=== PATIENT | female | born 1945 | race Caucasian/White ===

== ENCOUNTER 2016-09-15 05:22 | Observation (INO) | payer OTHER ==
[2016-09-06 09:37] VITALS: BMI 32.0
--- NOTE | 2016-09-06 10:05 | PAT Medication Instructions ---
Service Date September 06, 2016. Current Home Medication List Amlodipine (Norvasc), 5 MG PO QAM Fish Oil ([place]-3), 1 CAP PO QAM Homeopathic Products (Leg Cramp Relief), 1 TAB PO PRN Multiple Vitamins W/ Minerals (Multivitamin Adults), 1 TAB PO QAM Omeprazole (Prilosec), 20 MG PO QAM Oxycodone/Acetaminophen 5MG/325MG (Percocet 5MG/325MG), 1 TABLET PO Q4-6H [Calcium], 1 TAB PO QAM [Calcium], 1,200 MG PO QAM Medication Instructions For Your Scheduled Surgery Oxycodone/Acetaminophen 5MG/325MG (Percocet 5MG/325MG), 1 TABLET PO Q4-6H (to take after surgery as directed by surgeon) - Hold the following medications 2 weeks prior to surgery: Homeopathic Products (Leg Cramp Relief), 1 TAB PO PRN Fish Oil ([place]-3), 1 CAP PO QAM - Hold the following medications the morning of surgery: Calcium/Vit D 1 TAB PO QAM Multiple Vitamins W/ Minerals (Multivitamin Adults), 1 TAB PO QAM - Take the following medications the morning of surgery with a sip of water: Omeprazole (Prilosec), 20 MG PO QAM Amlodipine (Norvasc), 5 MG PO QAM If you have any questions please call us at [phone] or [phone] ( [place]) or [phone]
[2016-09-06 10:53] LABS: BASO % 0.4 %; BASO ABS # 0.02 K/uL (0-0.2); COMPLETE YES; EOS % 1.7 %; HEMATOCRIT 42.2 % (37-47); IG% 0.2 %; LYMPH % 34.6 %; LYMPH ABS # 1.61 K/uL (1.2-3.4); MEAN CELL VOLUME 90.8 fL (80-100); MEAN CORPUSCULAR HEMOGLOBIN 29.5 pg (25-34); MEAN CORPUSCULAR HGB CONC 32.5 g/dl (32-36); MEAN PLATELET VOLUME 8.8 fL (7.4-10.4); MONO % 7.3 %; NEUT % 55.8 %; PLATELET COUNT 289 K/uL (130-400); RED BLOOD COUNT 4.65 M/uL (4.2-5.4); WHITE BLOOD COUNT 4.65 K/uL (4.8-10.8)
[2016-09-06 11:04] LABS: INR 0.9 (0.9-1.1); PARTIAL THROMBOPLASTIN RATIO 1.2; PROTHROMBIN TIME (PATIENT) 9.8 SECONDS (9.0-12.0)
[2016-09-06 12:32] LABS: BUN/CREATININE RATIO 22.8 (10-20); CALCIUM 9.2 mg/dl (8.5-10.1); CREATININE 0.7 mg/dl (0.60-1.20); POTASSIUM 4.3 mmol/L (3.5-5.1)
[2016-09-15] VITALS (7 sets, daily range): BP systolic 129–156; BP diastolic 71–82; PULSE 76–93; TEMP 36.7–37; O2SAT 91–96; Ht 157.5 cm; Wt 85.6 kg
[~2016-09-15] VITALS: Ht 157.5 cm; Wt 85.6 kg
[~2016-09-15 05:22] MED LIST: AMLO-110 PO; CALC-51 PO; HOME1TAB18 PO; MULT-922 PO; OMEG10007 PO; OXYC-57 PO; PRLSR20 PO
[2016-09-15] MEDS ORDERED: ACET1TAB84 PO (05:51)
[2016-09-15] MEDS ORDERED: CEFAZOLIN 2000 MG/60 ML D5W IV SCH (06:00)
[2016-09-15] MEDS ORDERED: ENOXAPARIN 40 MG/0.4 ML SYR SQ SCH (06:00)
[2016-09-15] MEDS ORDERED: LACTATED RINGER'S 1000ML 1,000 ML IV SCH ×2 (06:00→11:12)
[2016-09-15] MEDS ORDERED: LIDOCAINE/EPINEPHRINE 1% 20 ML VIAL ONE (06:52)
[2016-09-15] MEDS ORDERED: CEFAZOLIN SOD 1 GM VIAL ONE (06:53)
[2016-09-15] MEDS ORDERED: BACITRACIN 50000 UNIT VIAL ONE (06:53)
[2016-09-15] MEDS ORDERED: BUPIVACAINE 0.25% 30 ML VIAL ONE (06:53)
[2016-09-15] MEDS ORDERED: DEXAMETHASONE SOD INJ 4 MG/ML VIAL ONE (07:02)
[2016-09-15] MEDS ORDERED: PROPOFOL IV EMULSION 10 MG/ML 20 ML VIAL IV ONE (07:02)
[2016-09-15] MEDS ORDERED: ROCURONIUM BROMIDE 10 MG/ML 5 ML VIAL ONE (07:02)
[2016-09-15] MEDS ORDERED: GLYCOPYRROLATE INJ 0.2 MG/ML VIAL ONE (07:02)
[2016-09-15] MEDS ORDERED: NEOSTIGMINE METHYLSULFATE 5 MG/5 ML SYR ONE (07:02)
[2016-09-15] MEDS ORDERED: LIDOCAINE HCL 2% 2 ML VIAL (20MG/ML) ONE (07:02)
[2016-09-15] MEDS ORDERED: MIDAZOLAM HCL 1 MG/ML 2ML VIAL ONE (07:02)
[2016-09-15] MEDS ORDERED: ONDANSETRON INJ 2 MG/ML 2 ML VIAL ONE (07:02)
--- NOTE | 2016-09-15 07:02 | History & Physical Bridge Note ---
H&P Re-Evaluation Bridge Note: I have examined the patient, reviewed the History & Physical and in the interval since the performance of the History & Physical I have noted the following changes of clinical significance: No changes noted
[2016-09-15] MEDS ORDERED: FENTANYL CITRATE INJ 50 MCG/1 ML 2 ML VIAL ONE (07:03)
[2016-09-15] MEDS ORDERED: ATROPINE SULFATE 0.1 MG/ML 5ML SYR IV PRN (08:00)
[2016-09-15] MEDS ORDERED: PHENYLEPHRINE 100MCG/ML 5ML SYR IV PRN (08:00)
[2016-09-15] MEDS ORDERED: MEPERIDINE HCL 25 MG/ML CARP IV PRN (08:00)
[2016-09-15] MEDS ORDERED: NALOXONE HCL 0.4 MG/1 ML VIAL/CARP IV PRN (08:00)
[2016-09-15] MEDS ORDERED: EpHEDrine SULFATE INJ 50 MG/ML AMP IV PRN (08:00)
[2016-09-15] MEDS ORDERED: LABETALOL HCL IV 5 MG/ML 20ML IV PRN (08:00)
[2016-09-15] MEDS ORDERED: FLUMAZENIL 0.1 MG/1 ML 10 ML VIAL IV PRN (08:00)
[2016-09-15] MEDS ORDERED: MoRPHine SULFATE 10 MG/ML CARP/VIAL IV PRN (08:00)
[2016-09-15] MEDS ORDERED: ONDANSETRON INJ 2 MG/ML 2 ML VIAL IV PRN ×2 (08:00→11:15)
[2016-09-15] MEDS ORDERED: PHENYLEPHRINE 100MCG/ML 5ML SYR ONE (08:17)
[2016-09-15] MEDS ORDERED: HYDROmorphone INJ 2 MG/ML SYR/VIAL ONE ×2 (08:18→11:22)
--- NOTE | 2016-09-15 11:06 | [facility] Post Operative Brief Note ---
Immediate Operative Summary Operative Date September 15, 2016. Pre-Operative Diagnosis Bilateral Symptomatic Macromastia Post-Operative Diagnosis Same as preop Procedure(s) Performed Bilateral Breast Reduction Surgeon Dr. Hobbs Project Manager Retail Surgeon(s) Jennifer Llamas PA-C Estimated Blood Loss 75 ml Findings NACs pink and viable bilaterally Specimens A. Left Breast Tissue left room at 0845 wt 874 gms B. Right breast Tissue left room at 1005 wt 906 gms Drains DANIEL x2 Anesthesia GET Disposition Recovery Room / PACU
[2016-09-15] MEDS ORDERED: ACETAMINOPHEN 325 MG TAB PO PRN (11:15)
[2016-09-15] MEDS ORDERED: OXYCODONE/ACETAMINOPHEN 5-325 TAB PO PRN (11:15)
[2016-09-15] MEDS ORDERED: MoRPHine SULFATE 4 MG/ML 1 ML CARP\\VIAL IV PRN (11:15)
[2016-09-15] MEDS ORDERED: MoRPHine SULFATE 2 MG/ML CARP IV PRN ×2 (11:15)
[2016-09-15] MEDS ORDERED: DiphenhydrAMINE HCL 50 MG/ML VIAL IV PRN (11:15)
[2016-09-15] MEDS ORDERED: PROMETHAZINE HCL INJ 12.5 MG in SODIUM CHLORIDE 0.9% 50ML 50 ML IV PRN (11:15)
[2016-09-15] MEDS ORDERED: OXAZEPAM 10MG CAP PO PRN (11:15)
--- NOTE | 2016-09-15 11:18 | Discharge Instructions ---
Discharge Instructions Date of Service September 15, 2016. Admission Reason for Admission: [place]ater[place] Symptomatic Macromastia Discharge Discharge Diagnosis / Problem: macromastia Discharge Goals Goal(s): Decrease discomfort Activity Recommendations Activity Limitations: as noted below ACTIVITY RECOMMENDATIONS: __Normal activities _x_No bending, lifting or straining __No driving __Driving allowed when you are off pain medications _x_Walking permitted __You should have help at home for ___ days DRESSINGS: __No dressings required _x_Keep dressings dry/in place until first office visit __Remove dressings ___ and leave dressings off __Apply ice ___ days __Remove dressings and reapply garment __Apply antibiotic ointment (Bacitracin, Neosporin, etc) to wounds 3-4 times/ day for 10 days BATHING: _x_Keep dressings dry _x_Sponge bathing permitted __Showering permitted _x_No swimming, hot tubs or soaking in a tub MEDICATIONS: Resume previous medications unless instructed otherwise by your surgeon. _x_Do not use aspirin, Motrin, Advil or Ibuprofen as these may promote bleeding. Please use Tylenol. _x_Prescription(s) provided: Pain medication was provided at your last office visit OTHER INSTRUCTIONS: __Record drain output 2-3 times per day SPECIAL CARE INSTRUCTIONS: * It is normal to have a mild fever after surgery. If your temperature is higher than 101.5 degrees F, please call the office at [phone]. * Constipation is a typical side effect of pain medication. An over-the- counter stool softener will help relieve this. * Leaking around surgical drains may occur and should not cause concern. Sometimes these drains become clogged. If this happens, remove the bulb and milk the clot out of the tube, then replace the bulb. * Drainage from wounds after liposuction is normal and should be expected. Garments will become soiled. You should protect furniture and bedding. This drainage should mostly subside within 2-3 days. Leave garments in place unless instructed to remove them. * If you have unusual drainage from a wound or are concerned you have an infection or have any questions or concerns, please call the office at [phone]. FOLLOW UP VISIT: If not already scheduled, please call the office, , when you return home after surgery to schedule an appointment to be seen in _1__ days. . Current Hospital Diet Patient's current hospital diet: Regular Diet Discharge Diet Recommended Diet: Regular Diet Procedures Procedures Performed: Bilateral Breast Reduction Pending Studies Studies pending at discharge: yes List of pending studies: pathology Medical Emergencies . Who to Call and When: Medical Emergencies: If at any time you feel your situation is an emergency, please call 911 immediately. . Non-Emergent Contact Non-Emergency issues call your: Primary Care Provider, Surgeon . "Provider Documentation" section prepared by Jennifer Llamas. . VTE Core Measure Inpt VTE Proph given/why not?: SCD's [place] Drug Monitoring Program Search Results: no issues identified
[2016-09-15] MEDS: HYDROmorphone INJ 1 MG/ML SYR IV PRN ×4 (11:22→11:37)
--- NOTE | 2016-09-15 12:04 | Anesthesiology Progress Note ---
Anesthesia Post Op Note Date & Time September 15, 2016 at 12:03 Vital Signs Pain Intensity: 2 Vital Signs Past 12 Hours Date Time Temp Pulse Resp B/P Pulse Ox O2 Delivery O2 Flow Rate FiO2 09/15/16 11:55 83 16 131/70 5 Nasal Cannula 4 09/15/16 11:45 79 16 118/69 99 Nasal Cannula 4 09/15/16 11:35 83 16 140/77 94 Mask 10 09/15/16 11:25 87 16 144/82 99 Mask 10 09/15/16 11:17 36.4 86 16 152/80 100 Mask 10 09/15/16 05:53 36.8 76 18 156/74 96 Room Air Notes Mental Status: alert / awake / arousable, participated in evaluation Pt Amnestic to Procedure: Yes Nausea / Vomiting: adequately controlled Pain: adequately controlled Airway Patency, RR, SpO2: stable & adequate BP & HR: stable & adequate Hydration State: stable & adequate Anesthetic Complications: no major complications apparent
[2016-09-15] MEDS ORDERED: IV FLUIDS COMPLETED PRN (13:45)
[2016-09-15] MEDS ORDERED: PNEUMOCOCCAL ADMINISTRATION CHARGE ONE (14:45)
[2016-09-15] MEDS ORDERED: PNEUMOCOCCAL POLYSACCHARIDES 25 MCG/0.5 ML VIAL/SYR IM. ONE (14:45)
[2016-09-15] MEDS: CEFAZOLIN IV 2,000 MG in DEXTROSE 5% 50ML 50 ML IV SCH ×2 (15:26→23:27)
--- NOTE | 2016-09-15 16:01 | OPERATIVE REPORT ---
DATE OF OPERATION: 09/15/2016 PREOPERATIVE DIAGNOSIS: Bilateral symptomatic macromastia. POSTOPERATIVE DIAGNOSIS: Same. PROCEDURE: Bilateral reduction mammoplasty with inferior pedicle technique. SURGEON: Dr. Sabrina Hobbs. [place] COMMISSIONER: Jennifer Llamas PA-C ANESTHESIA: General. COMPLICATIONS: None. DICTATION ENDS HERE I attest to the content of the Intraoperative Record and any orders documented therein. Any exceptio ns are noted below.
--- NOTE | 2016-09-15 16:09 | OPERATIVE REPORT ---
DATE OF OPERATION: 09/15/2016 PREOPERATIVE DIAGNOSIS: Bilateral symptomatic macromastia. POSTOPERATIVE DIAGNOSIS: Same. PROCEDURE: Bilateral reduction mammoplasty with inferior pedicle technique. SURGEON: Dr. Sabrina Hobbs. DECK MECHANIC: Jennifer Llamas PA-C. ANESTHESIA: General. COMPLICATIONS: None. INDICATION FOR THE PROCEDURE: The patient is a 71-year-old female who presented to my office with concerns of back, neck and shoulder pain related to her large breasts. After discussion, she elects to proceed with reduction mammoplasty. BRIEF DESCRIPTION OF THE PROCEDURE: The risks, benefits and alternatives of the procedure were explained to the patient, who agreed and signed consent. She was identified and marked in the preoperative holding area. She was brought to the operating room, where she was positioned supine and placed under anesthesia without incident. The surgical site was prepped and draped sterilely. A time-out procedure was performed. Markings were reassessed and an 8-cm pedicle was marked. I began with the left side. The breasts were reasonably symmetric prior to beginning the procedure. 1% lidocaine with epinephrine was used to anesthetize the planned incisions. A 38-mm cookie cutter was used to circumscribe the nipple-areolar complex. The previously marked 8-cm pedicle was incised using a 15 blade scalpel and deepithelialized. I began with the medial dissection of the pedicle using electrocautery. Cautery was used to incise through dermis and breast parenchyma down to chest wall, taking care not to undermine the pedicle during dissection. A similar procedure was undertaken on the lateral aspect of the pedicle, taking care not to undermine the pedicle. Lastly, the pedicle was dissected out superiorly using electrocautery. This was carried down to chest wall. I then began excision of the medial breast tissue followed by lateral aspect of the breast tissue. A 15 blade scalpel was used to make the inframammary fold incision. Electrocautery was used to deepen the incision through dermis and breast parenchyma. Dissection was then carried superiorly to the level of the superior incision. The superior incision was then incised using 15 blade scalpel and again dissected using electrocautery. A similar procedure was undertaken laterally and then around the keyhole portion of the incision. Care was taken to leave some fat on the lateral pectoralis fascia in order to protect the T4 intercostal nerve. Hemostasis was achieved with electrocautery. The specimen was removed in its entirety and passed off for weighing. Additional resection was undertaken until maximal resection weight of 874 grams on the left breast and there was uniform pedicle and flap. The wound was irrigated with normal saline. Hemostasis was achieved with electrocautery. 0.25% Marcaine plain was used to anesthetize the incisions as well as the pectoralis fascia. A 15-Macedonian Wilmar drain was brought out through a separate stab incision. The nipple-areolar complex was advanced into the keyhole using 2-0 Vicryl deep dermal suture. Wound was first closed in a lateral to mid breast direction using 2-0 Vicryl deep dermals and then medial to mid breast using 2-0 Vicryl deep dermals. Vertical limb was approximated using 2-0 Vicryl deep dermals. The nipple-areolar complex was also inset using 2-0 Vicryl deep dermals. Next, the superficial dermal layer was closed using 2-0 PDO running Quill suture along the inframammary fold, 3-0 PDS for the vertical limb and nipple-areolar complex closures. Lastly, 3-0 Monocryl running subcuticular suture was placed. A similar procedure was undertaken on the right side with a maximal resection weight of 906 grams. At the end of the case, both nipple-areolar complexes were pink and viable without evidence of vascular compromise. The breasts appeared symmetric. Dermabond was placed around the nipple-areolar complex and the inframammary fold as well as vertical limb incisions were dressed using Dermabond Prineo. Following placement of Dermabond, a dry dressing and surgical bra were placed. The patient was awakened and transferred to recovery in satisfactory condition. Jennifer Llamas PA-C was present and scrubbed throughout the entire procedure and was instrumental in providing retraction during dissection of the pedicle as well as assisting in simultaneous wound closure. I attest to the content of the Intraoperative Record and any orders documented therein. Any exceptio ns are noted below.
[2016-09-15] MEDS: OXYCODONE/ACETAMINOPHEN 5-325 TAB PO PRN (20:34)
[2016-09-15] MEDS ORDERED: NURSING DECISION MEDICATION ORDER SCH (21:00)
[2016-09-16 03:29] VITALS: BP 138/72; PULSE 103; TEMP 36.9; O2SAT 93
[2016-09-16 07:23] VITALS: BP 137/82; PULSE 89; TEMP 37; O2SAT 95
[2016-09-16 07:30] VITALS: BP 111/68; PULSE 95; TEMP 36.7; O2SAT 96
--- NOTE | 2016-09-16 07:58 | Surgery Progress Note ---
Surgery Progress Note Date of Service September 16, 2016. Subjective Post OP Day: 1 + ambulating, + feeling well, + pain controlled, No complaints Objective Vital Signs: Date Time Temp Pulse Resp B/P Pulse Ox O2 Delivery O2 Flow Rate FiO2 09/16/16 07:23 37.0 89 16 137/82 95 Room Air 09/16/16 03:29 36.9 103 16 138/72 93 Room Air 09/15/16 23:15 37.0 85 16 129/71 93 Room Air 09/15/16 20:10 37.0 93 16 142/75 91 Room Air 09/15/16 19:40 Room Air 09/15/16 16:10 36.7 87 16 137/82 92 Room Air 09/15/16 14:55 36.7 87 16 131/79 09/15/16 13:30 82 18 147/80 95 Nasal Cannula 2.0 09/15/16 13:05 Nasal Cannula 2.0 09/15/16 13:05 36.7 93 16 145/82 94 Nasal Cannula 2.0 09/15/16 13:05 94 Nasal Cannula 2.0 09/15/16 12:35 85 16 130/79 96 Nasal Cannula 4 09/15/16 12:20 36.1 82 16 125/74 92 Nasal Cannula 4 09/15/16 12:05 36.1 80 16 127/80 92 Nasal Cannula 4 09/15/16 11:55 83 16 131/70 5 Nasal Cannula 4 09/15/16 11:45 79 16 118/69 99 Nasal Cannula 4 09/15/16 11:35 83 16 140/77 94 Mask 10 09/15/16 11:25 87 16 144/82 99 Mask 10 09/15/16 11:17 36.4 86 16 152/80 100 Mask 10 Physical Exam: Wilmar drainage (serous and sanguineous ) General Appearance: WD/WN, no apparent distress Incision(s): clean, dry, intact, no erythema, findings (nipples pink and with sensation ) Laboratory Results: Results Past 24 Hours Test 09/16/16 06:25 Range/Units Assessment & Plan s/p bilateral breast reduction 1. drains removed 2. d/c home this AM- will see in office tomorrow
--- NOTE | 2016-09-16 08:20 | Anesthesiology Progress Note ---
Anesthesia Post Op Note Date & Time September 16, 2016 at 08:19 Vital Signs Pain Intensity: 7.0 Vital Signs Past 12 Hours Date Time Temp Pulse Resp B/P Pulse Ox O2 Delivery O2 Flow Rate FiO2 09/16/16 07:23 37.0 89 16 137/82 95 Room Air 09/16/16 03:29 36.9 103 16 138/72 93 Room Air 09/15/16 23:15 37.0 85 16 129/71 93 Room Air Notes Mental Status: alert / awake / arousable, participated in evaluation Anesthetic Complications: no major complications apparent
[2016-09-16] MEDS ORDERED: PANTOprazole SOD 40 MG TAB PO SCH (09:00)
[2016-09-16] MEDS ORDERED: AMLODIPINE BESYLATE 5 MG TAB PO SCH (09:00)
[2016-09-16] MEDS ORDERED: MULTIVITAMIN TAB PO SCH (09:00)
[2016-09-16] MEDS ORDERED: CALCIUM CARBONATE 1250MG TAB PO SCH (09:00)
[2016-09-16 10:00] VITALS: BP 137/82; PULSE 89; TEMP 37; O2SAT 95
[2016-09-16] MEDS: OXYCODONE/ACETAMINOPHEN 5-325 TAB PO PRN (10:07)
--- NOTE | 2016-09-17 10:53 | Discharge Summary ---
Discharge Summary Date of Service September 17, 2016. Admission Date/Reason September 15, 2016 at 11:15 Bilateratl Symptomatic Macromastia. Discharge Date/Disposition September 16, 2016 Home Diagnosis Principal Diagnosis: macromastia Procedure(s) Performed bilateral breast reduction Medication Reconciliation Continued Medications: Acetaminophen (Tylenol Arthritis Ext Rel) 650 Mg Cplt 650 MG PO Q8H PRN for Pain, CAP Amlodipine (Norvasc) 5 Mg Tab 5 MG PO QAM, TAB Homeopathic Products (Leg Cramp Relief) 1 Tab Tab 1 TAB PO PRN Multiple Vitamins W/ Minerals (Multivitamin Adults) 1 Tab Tab 1 TAB PO QAM Omeprazole (Prilosec) 20 Mg Capcr 20 MG PO QAM, CAP Oxycodone/Acetaminophen 5MG/325MG (Percocet 5MG/325MG) Tab 1 TABLET PO Q4-6H, TAB PAIN [Calcium] () 1200 MG PO QAM Discontinued Medications: Fish Oil ([place]-3) 1 Ea Cap 1 CAP PO QAM, CAP Admission Physical Exam As per Admitting History & Physical. Hospital Course patient presented to [facility] with history of symptomatic macromastia. She was taken to the OR and underwent bilateral breast reduction. Two rashawn drains were placed intraoperatively. She tolerated the procedure well. On POD 1 she was tolerated regular diet and ambulating. She had small amount of serosanguineous drainage. Her drains were removed. On exam, her incisions were clean, dry, intact. She was discharged home with instructions to follow-up in office the next day. Discharge Instructions Please refer to the electronic Patient Visit Report (Discharge Instructions) for additional information.
== END 2016-09-16 10:21 | disposition home or self-care (01) ==
LOC: ENRESERVDT → ENRESERVTM → C.ACU 05:22 → C.MSN 11:15
PROVIDERS: ADMIT Plastic Surgery; ATTEND Plastic Surgery
DX: N62 Hypertrophy of breast (principal); I10 Essential (primary) hypertension; M19.90 Unspecified osteoarthritis, unspecified site; Z79.899 Other long term (current) drug therapy